=== PATIENT | female | born 1960 | race Caucasian/White ===

== ENCOUNTER 2021-10-06 05:23 | Inpatient (IN) | payer BC ==
[2021-10-01 11:10] LABS: BASOPHILS # (AUTO) 0.1 X10'3 (0-0.2); BASOPHILS % (AUTO) 0.7 % (0-1); EOSINOPHILS # (AUTO) 0.1 X10'3 (0-0.9); EOSINOPHILS % (AUTO) 1.8 % (0-6); LYMPHOCYTES % (AUTO) 26.3 % (21-51); MEAN CORPUSCULAR HEMOGLOBIN 31.5 PG (27.0-31.0); MEAN CORPUSCULAR HGB CONC 35.5 g/dL (33.0-36.5); MEAN CORPUSCULAR VOLUME 88.6 FL (78-98); MEAN PLATELET VOLUME 7.2 FL (7.4-10.4); MONOCYTES # (AUTO) 0.5 X10'3 (0-0.9); MONOCYTES % (AUTO) 6.5 % (2-12); NEUTROPHILS # (AUTO) 4.9 X10'3 (1.8-7.7); NEUTROPHILS % (AUTO) 64.7 % (42-75); PRE OP HEMOGLOBIN 16.3 g/dL (12.0-16.0); PRE OP PLATELET COUNT 288 X10'3 (140-440); RED BLOOD COUNT 5.19 X10'6 (4.20-5.60)
[2021-10-01 11:27] LABS: ALBUMIN 3.9 G/DL (3.4-5.0); ALBUMIN/GLOBULIN RATIO 1.1 (1.1-1.5); ALKALINE PHOSPHATASE 76 IU/L (46-116); BLOOD UREA NITROGEN 11 MG/DL (7-18); BUN/CREATININE RATIO 14.5 (6.6-38.0); CALCIUM 9.4 MG/DL (8.5-10.1); CHLORIDE 105 MMOL/L (99-107); CREATININE 0.76 MG/DL (0.40-0.90); PRE OP ALT 24 U/L (30-65); PRE OP ANION GAP 8 (8-16); PRE OP AST 22 U/L (10-37); PRE OP BILIRUB, TOTAL 0.8 MG/DL (0.0-1.0); PRE OP GLUCOSE 84 MG/DL (70-104); PRE OP SODIUM 142 MMOL/L (135-145); TOTAL CARBON DIOXIDE 29.1 MMOL/L (24-32); TOTAL PROTEIN 7.6 G/DL (6.4-8.2); eGFR 78 ML/MIN
[2021-10-01 11:32] LABS: PRE OP POTASSIUM 3.6 MMOL/L (3.4-5.1)
[~2021-10-06] VITALS: Ht 162.6 cm; Wt 78.2 kg
[2021-10-06] VITALS (20 sets, daily range): BP systolic 86–135; BP diastolic 40–71
[~2021-10-06 05:23] MED LIST: ATOR10TA70 PO; HYDR12.55 PO; ringers solution, lacted 1,000 ML IV SCH
[2021-10-06] MEDS ORDERED: acetaminophen 325mg tablet PO ONE (05:30)
[2021-10-06] MEDS ORDERED: ceFAZolin inj. 2,000 MG in dextrose 5%-water 100 ML IV ONE (05:30)
[2021-10-06] MEDS ORDERED: gabapentin 300mg capsule PO ONE (05:30)
[2021-10-06] MEDS ORDERED: celeCOXIB 100mg capsule PO ONE (05:30)
[2021-10-06] MEDS ORDERED: famotidine 20mg tablet PO ONE (05:30)
[2021-10-06] MEDS ORDERED: vancomycin 1,500 MG in NS 300ml IV soln IV ONE (05:30)
[2021-10-06] MEDS ORDERED: tranexamic acid inj. 1,000 MG in normal saline 100ml IV soln 90 ML IV ONE (05:30)
[2021-10-06] MEDS ORDERED: oxyCODONE SR 10mg (sust. release) tab -2 tabs (20mg) PO ONE (05:30)
[2021-10-06] MEDS ORDERED: metoclopramide 5 mg/ml inj IV ONE (05:30)
[2021-10-06] MEDS ORDERED: magnesium hydroxide 30ml (MOM) UD suspension PO PRN (06:30)
[2021-10-06] MEDS ORDERED: naloxone 0.4 mg/ml inj IV PRN (06:30)
[2021-10-06] MEDS ORDERED: diphenhydrAMINE 25mg capsule PO PRN ×2 (06:30)
[2021-10-06] MEDS ORDERED: HYDROmorphone 1 mg/ml syringe IV PRN (06:30)
[2021-10-06] MEDS ORDERED: ondansetron/PF 4mg/2ml inj IV PRN ×2 (06:30→07:00)
[2021-10-06] MEDS ORDERED: HYDROmorphone inj. 0.5 MG/0.5 ML DISP.SYRIN IV PRN (06:30)
[2021-10-06] MEDS ORDERED: acetaminophen 325mg tablet PO PRN (06:30)
[2021-10-06] MEDS ORDERED: bisacodyl 10mg suppository rectal RC PRN (06:30)
[2021-10-06] MEDS ORDERED: ROPIVAcaine 0.5% (5mg/ml) 30ml vial ONE ×2 (06:39→06:58)
[2021-10-06] MEDS ORDERED: epiNEPHrine 1 mg/ml inj ONE (06:39)
[2021-10-06] MEDS ORDERED: cloNIDine hcl/PF 100mcg/ml inj ONE (06:39)
[2021-10-06] MEDS ORDERED: ketorolac trometh. 30mg/ml inj. ONE (06:39)
[2021-10-06] MEDS ORDERED: vancomycin 1,000mg inj ONE (06:41)
[2021-10-06] MEDS ORDERED: fentaNYL/PF 50MCG/1 ML 2ML syringe IV PRN ×2 (07:00)
[2021-10-06] MEDS ORDERED: labetalol 20mg/4ml (5mg/ml) syringe IV PRN (07:00)
[2021-10-06] MEDS ORDERED: ringers solution, lacted 1,000 ML IV SCH (07:00)
[2021-10-06] MEDS ORDERED: ROPIVAcaine 0.2%/PF PUMP/bolus 545 ML ADDCANAL SCH (07:00)
[2021-10-06] MEDS ORDERED: morphine 4 MG/ML inj SYRINge IV PRN (07:00)
[2021-10-06] MEDS ORDERED: ROPIVAcaine 0.2% (10 MG/5 ML) BOLUS INJECTION ADDCANAL PRN (07:00)
[2021-10-06] MEDS ORDERED: hydrALAZINE 20mg/ml inj. IV PRN (07:00)
--- NOTE | 2021-10-06 07:00 | NUR ---
BILATERAL PEDAL PULSES PALPABLE, BILATERAL EXTREMITIES WARM AND DRY. RIGHT KNEE MARKED BY PHYSICIAN. CIRCULATION, SENSORY, AND MOVEMENT ALL WITHIN NORMAL LIMITS. RIGHT LEG AND PREPPED, SHAVED AND CLEANED BY PRE-OP TECH. PT EDUCATED ON USE OF INCENTIVE SPIROMETER. MURPURICIN OINTMENT WAS USED DAILY IN NARES PER INSTRUCTIONS. PT COMPLETED DAILY SHOWERED WITH HIBACLENS DAILY FOR 5 DAYS. PT WATCHED THE VIDEO AND READ INSTRUCTIONS ON THE TOTAL KNEE PROCEDURE.
[2021-10-06] MEDS ORDERED: fentaNYL/PF 50MCG/1 ML 2ML syringe ONE (07:03)
[2021-10-06] MEDS ORDERED: MIDAZolam 1mg/ml 10ml vial ONE (07:03)
[2021-10-06] MEDS ORDERED: propofol inj 20 ML IV ONE (07:41)
[2021-10-06] MEDS ORDERED: LIDOcaine 2% (20mg/ml) 5ml vial ONE (07:41)
[2021-10-06] MEDS: ascorbic acid 500mg tablet PO SCH ×2 (08:00→20:01)
[2021-10-06] MEDS: gabapentin 300mg capsule PO SCH ×3 (08:00→20:01)
[2021-10-06] MEDS: multivitamins, therapeutics tablet PO SCH (08:00)
--- NOTE | 2021-10-06 09:14 | NUR ---
Received from OR via HOSPITAL BED, accompanied by Anesthesiologist DR. CHANDRA and report given by Anesthesiolgist. RIGHT AC 18G PIV WITH LR RUNNING AT 100ML/HR. HYPOTENSION SYSTOLIC 89, DIFFERENCE FROM 135 PREOP. RIGHT KNEE WITH DRESSING, SLEEVE AND COLD SAND PACK WITH LUIZA. PATIENT IS ABLE TO WIGGLE RIGHT TOES AND HAS DULL PAIN TO RIGHT SIDE.
--- NOTE | 2021-10-06 09:15 | NUR ---
DERMATONES AT UMBILICUS WITH DULL PAIN FELT EXTENDING DOWN TO A PRESSURE FEELING AT LATERAL UPPER THIGH.
[2021-10-06] MEDS: morphine 2 MG/ML inj. syringe IV PRN ×2 (09:40→09:59)
--- NOTE | 2021-10-06 09:55 | NUR ---
REPORT GIVEN TO JP HAYS.
--- NOTE | 2021-10-06 10:14 | NUR ---
PATIENT ALERT AND ORIENTED. STATES PAIN IS "BARELY A 1/10". DENIES NAUSEA. DRESSING TO RIGHT KNEE CDI WITH ONQ ATTACHED, LUIZA AND SLEEVE IN PLACE. BELONGINGS WITH PATIENT'S , DENNISE. PATIENT TRANSFERRED TO [facility].
[2021-10-06] MEDS ORDERED: tranexamic acid inj. 800 MG in normal saline 100ml IV soln 92 ML IV ONE ×2 (11:30→13:00)
[2021-10-06] MEDS: potassium cl 20mEq in 1/2 NS 1,000 ML IV SCH ×3 (14:26→22:30)
[2021-10-06] MEDS: ceFAZolin/D5W- 1GM premix 50 ML IV SCH (16:54)
[2021-10-06] MEDS: traMADol 50MG tablet PO PRN (16:54)
--- NOTE | 2021-10-06 19:00 | NUR ---
Report to Amna HAYS
[2021-10-06] MEDS ORDERED: vancomycin/NS 1 GM ADD-VANTAGE 250 ML IV ONE (20:00)
[2021-10-06] MEDS ORDERED: sennosides 8.6mg tablet PO SCH (21:00)
[2021-10-07] MEDS: traMADol 50MG tablet PO PRN ×2 (00:17→05:44)
[2021-10-07] MEDS: ceFAZolin/D5W- 1GM premix 50 ML IV SCH (00:19)
[2021-10-07 02:00] VITALS: BP 125/64
[2021-10-07 06:00] VITALS: BP 129/78
[2021-10-07 06:24] LABS: ANION GAP 8 (8-16); CHLORIDE 105 MMOL/L (99-107); POTASSIUM 3.5 MMOL/L (3.5-5.1); SODIUM 138 MMOL/L (135-145); TOTAL CARBON DIOXIDE 24.6 MMOL/L (24-32)
[2021-10-07] MEDS: potassium cl 20mEq in 1/2 NS 1,000 ML IV SCH (06:30)
[2021-10-07 06:31] LABS: BASOPHILS % (AUTO) 0.2 % (0-1); EOSINOPHILS # (AUTO) 0.1 X10'3 (0-0.9); EOSINOPHILS % (AUTO) 0.9 % (0-6); HEMATOCRIT 36.6 % (35.0-45.0); HEMOGLOBIN 13.1 g/dl (12.0-16.0); LYMPHOCYTES # (AUTO) 1.1 X10'3 (1.1-4.8); LYMPHOCYTES % (AUTO) 11.7 % (21-51); MEAN CORPUSCULAR HGB CONC 35.8 g/dL (33.0-36.5); MEAN CORPUSCULAR VOLUME 89.2 FL (78-98); MEAN PLATELET VOLUME 7.8 FL (7.4-10.4); MONOCYTES # (AUTO) 0.6 X10'3 (0-0.9); MONOCYTES % (AUTO) 6.7 % (2-12); NEUTROPHILS # (AUTO) 7.6 X10'3 (1.8-7.7); NEUTROPHILS % (AUTO) 80.5 % (42-75); PLATELET COUNT 202 X10'3 (140-440); RED BLOOD COUNT 4.11 X10'6 (4.20-5.60); RED CELL DISTRIBUTION WIDTH 12.9 % (11.5-14.5); WHITE BLOOD COUNT 9.4 X10'3 (4.5-11.0)
--- NOTE | 2021-10-07 06:44 | NUR ---
Patient in room [facility]THO 4013. I have received report from Adolfo HAYS and had the opportunity to ask questions and assume patient care.
[2021-10-07] MEDS ORDERED: enoxaparin 40mg/0.4ml syringe SUBCUT SCH (08:00)
[2021-10-07] MEDS ORDERED: HYDROchlorothiazide 12.5mg capsule PO SCH (08:00)
[2021-10-07] MEDS ORDERED: atorvastatin 10mg tablet PO SCH (08:00)
[2021-10-07] MEDS ORDERED: aspirin 325mg tablet PO SCH (08:30)
[2021-10-07] MEDS: gabapentin 300mg capsule PO SCH (08:53)
[2021-10-07] MEDS: multivitamins, therapeutics tablet PO SCH (08:54)
[2021-10-07] MEDS: ascorbic acid 500mg tablet PO SCH (08:54)
--- NOTE | 2021-10-07 10:59 | NUR ---
Joint surgery consult: Pt s/p R knee surgery this admit per EMR. Pt seen by DONOVAN for written/verbal high protein ed w/ RD contact information provided. DONOVAN encouraged pt to contact dietitian's office if further questions/concerns. Addendum: 10/07/21 at [address] Amended: Links added.
[2021-10-07] MEDS ORDERED: celeCOXIB 100mg capsule PO SCH (20:00)
== END 2021-10-07 10:10 | disposition home or self-care (01) | DRG 470 ==
LOC: PAS 05:23 → ORTHO 4S 06:32
PROVIDERS: ADMIT Orthopaedic Surgery; ATTEND Orthopaedic Surgery
PROC: 3E0T3BZ Introduction of Anesthetic Agent into Peripheral Nerves and Plexi, Percutaneous Approach (ICD-10-PCS; 2021-10-06)
PROC: 3E0T33Z Introduction of Anti-inflammatory into Peripheral Nerves and Plexi, Percutaneous Approach (ICD-10-PCS; 2021-10-06)
PROC: 0SRC0J9 Replacement of Right Knee Joint with Synthetic Substitute, Cemented, Open Approach (ICD-10-PCS; principal; 2021-10-06 07:22)
DX: M17.11 Unilateral primary osteoarthritis, right knee (principal); E66.9 Obesity, unspecified; I10 Essential (primary) hypertension; Z79.899 Other long term (current) drug therapy; Z68.29 Body mass index [BMI] 29.0-29.9, adult
CPT/HCPCS: Z7506; Z7508; 36415; 73560; 80051; 80053; 82948; 85025; 86885; 86900; 86901; 87081; 87811; 97110; 97116; 97161; A4215; A6449; A7000; C1713; C1776; G0378; J0171; J0690; J0735; J1170; J1650; J1885; J2250; J2270; J2704; J2765; J2795; J3010; J3370; J3480; J3490; J7040; J7060; J7120